=== PATIENT | female | born 1965 | race Two or more races ===

== ENCOUNTER → 2016-12-28 | Outpatient (CLI) | payer OTHER ==
[2016-12-28 08:51] LABS: Basophils # (auto) 0 uL; Basophils % (auto) 0.7 % (0.0-2.0); CONDITION Y; Eosinophils # (auto) 0.2 uL; Hemoglobin 12.9 g/dL (12.2-16.2); Lymphocytes # (auto) 1.7 uL; Lymphocytes % (auto) 30.9 % (10.0-50.0); Mean Corpuscular Hemoglobin 30.4 pg (28.0-32.0); Mean Corpuscular Hgb Conc. 33.9 g/dL (32.0-36.0); Mean Corpuscular Volume 89.6 fL (80.0-100.0); Mean Platelet Volume 7.2 fL (7.4-10.4); Monocytes # (auto) 0.3 uL; Monocytes % (auto) 5.9 % (0.0-12.0); Neutrophils # (auto) 3.3 uL; Neutrophils % (auto) 59.5 % (37.0-80.0); Platelet Count (auto) 354 10^3/uL (140-450); Red Cell Distribution Width 13.5 % (11.6-16.0); White Blood Cell 5.6 10^3/uL (4.4-10.8)
[2016-12-28 08:59] LABS: Urine Bilirubin Negative (Negative); Urine Blood TRACE /uL (Negative); Urine Color Yellow (Yellow); Urine Glucose Normal (Normal); Urine Ketone Negative (Negative); Urine Mucus FEW (None Seen); Urine Nitrite Negative (Negative); Urine RBC 1 /hpf (0 - 4); Urine Squamous Epithelial Cell FEW /hpf (<5); Urine Urobilinogen Normal (Negative); Urine pH 5.5 (5.0-8.0)
[2016-12-28 09:16] LABS: Albumin 3.8 g/dL (3.4-5.0); BUN/Creatinine Ratio 21.6; Bilirubin, Total 0.3 mg/dL (0.2-1.0); Calcium 9.3 mg/dL (8.5-10.1); Potassium 3.8 mmol/L (3.5-5.1)
[2016-12-28 09:36] LABS: Temperature: 23.5 C (20.0-25.0)
== END | disposition home or self-care (01) ==
LOC: LAB 08:29
PROVIDERS: ATTEND Family Medicine
DX: M19.90 Unspecified osteoarthritis, unspecified site (principal)
CPT/HCPCS: 36415; 80053; 80061; 81001; 82270; 82306; 82607; 82746; 83036; 84443; 85025; 86431

== ENCOUNTER → 2017-04-01 | Outpatient (CLI) | payer OTHER | END | disposition home or self-care (01) | LOC: LAB 11:31 | DX: I10 Essential (primary) hypertension (principal); I70.0 Atherosclerosis of aorta; M06.9 Rheumatoid arthritis, unspecified; E78.00 Pure hypercholesterolemia, unspecified; M45.0 Ankylosing spondylitis of multiple sites in spine | CPT/HCPCS: 36415; 84550; 86141; 86200; 86812 ==

== ENCOUNTER → 2017-07-03 | Outpatient (CLI) | payer OTHER ==
[2017-07-03 11:57] LABS: BUN/Creatinine Ratio 19.5; Calcium 9.3 mg/dL (8.5-10.1); Potassium 4.1 mmol/L (3.5-5.1)
== END | disposition home or self-care (01) ==
LOC: LAB 11:13
PROVIDERS: ATTEND Nurse Practitioner
DX: R73.03 Prediabetes (principal)
CPT/HCPCS: 36415; 80048; 83036

== ENCOUNTER → 2018-04-28 | Outpatient (CLI) | payer OTHER | END | disposition home or self-care (01) | LOC: LAB 15:05 | PROVIDERS: ATTEND Nurse Practitioner | DX: Z00.00 Encounter for general adult medical examination without abnormal findings (principal) | CPT/HCPCS: 82270 ==

== ENCOUNTER → 2018-10-22 | Outpatient (CLI) | payer OTHER ==
[2018-10-22 10:36] LABS: Urine WBC None Seen /hpf (0 - 5)
[2018-10-22 11:19] LABS: Urine Bacteria NONE SEEN /hpf (None Seen); Urine Blood Negative /uL (Negative); Urine Mucus FEW (None Seen); Urine Specific Gravity 1.024 (1.001-1.035)
[2018-10-22 11:46] LABS: Potassium 3.7 mmol/L (3.5-5.1)
[2018-10-22 11:53] LABS: Folate (Folic Acid) 11.64 ng/mL (5.38-24)
[2018-10-22 11:54] LABS: Albumin 3.8 g/dL (3.4-5.0); BUN/Creatinine Ratio 22.9; Bilirubin, Total 0.6 mg/dL (0.2-1.0); Calcium 8.9 mg/dL (8.5-10.1); Total Protein 8.1 g/dL (6.4-8.2); Uric Acid 4.7 mg/dL (2.6-6.0)
[2018-10-22 14:16] LABS: Basophils # (auto) 0 uL; Eosinophils # (auto) 0.2 uL; Eosinophils % (auto) 4.2 % (0.0-7.0); Hematocrit 36.5 % (36.0-46.0); Hemoglobin 12.4 g/dL (12.2-16.2); Lymphocytes # (auto) 1.4 uL; Lymphocytes % (auto) 29.8 % (10.0-50.0); Monocytes # (auto) 0.3 uL; Monocytes % (auto) 7.2 % (0.0-12.0); Neutrophils # (auto) 2.7 uL; Neutrophils % (auto) 57.8 % (37.0-80.0); Nucleated Red Blood Cells % 0.1 %; Platelet Count (auto) 312 10^3/uL (140-450); Red Blood Cells 4.01 10^6/uL (4.0-5.20); Red Cell Distribution Width 13.2 % (11.8-14.3); White Blood Cell 4.7 10^3/uL (4.4-10.8)
== END | disposition home or self-care (01) ==
LOC: LAB 09:44
PROVIDERS: ATTEND Nurse Practitioner
DX: E78.5 Hyperlipidemia, unspecified (principal)
CPT/HCPCS: 36415; 80053; 80061; 81001; 82306; 82607; 82746; 83036; 84443; 84550; 85025; 85652

== ENCOUNTER → 2018-12-24 | Outpatient (CLI) | payer OTHER ==
[2018-12-24 13:01] LABS: Albumin 3.5 g/dL (3.4-5.0); Calcium 8.7 mg/dL (8.5-10.1); Potassium 3.9 mmol/L (3.5-5.1)
[2018-12-24 13:04] LABS: BUN/Creatinine Ratio 29.5; Bilirubin, Total 0.2 mg/dL (0.2-1.0); Total Protein 7.9 g/dL (6.4-8.2)
== END | disposition home or self-care (01) ==
LOC: LAB 11:19
PROVIDERS: ATTEND Nurse Practitioner
DX: R73.09 Other abnormal glucose (principal)
CPT/HCPCS: 36415; 80053; 82306; 83036

== ENCOUNTER → 2019-02-18 | Outpatient (CLI) | payer OTHER ==
[2019-02-18 13:32] LABS: Basophils # (auto) 0 uL; Basophils % (auto) 0.6 % (0.0-2.0); Eosinophils # (auto) 0.2 uL; Eosinophils % (auto) 3.4 % (0.0-7.0); Hematocrit 36.9 % (36.0-46.0); Hemoglobin 12.8 g/dL (12.2-16.2); Lymphocytes # (auto) 1.7 uL; Mean Corpuscular Hemoglobin 30.8 pg (28.0-32.0); Mean Corpuscular Hgb Conc. 34.7 g/dL (32.0-36.0); Mean Corpuscular Volume 88.6 fL (80.0-100.0); Monocytes # (auto) 0.3 uL; Monocytes % (auto) 5.6 % (0.0-12.0); Neutrophils # (auto) 3.5 uL; Neutrophils % (auto) 60.4 % (37.0-80.0); Nucleated Red Blood Cells % 0.1 %; Platelet Count (auto) 330 10^3/uL (140-450); Red Blood Cells 4.17 10^6/uL (4.0-5.20); Red Cell Distribution Width 12.9 % (11.8-14.3); White Blood Cell 5.8 10^3/uL (4.4-10.8)
[2019-02-18 13:45] LABS: Albumin 3.8 g/dL (3.4-5.0); Calcium 8.8 mg/dL (8.5-10.1); Potassium 3.7 mmol/L (3.5-5.1)
[2019-02-18 13:49] LABS: BUN/Creatinine Ratio 18.6; Bilirubin, Total 0.2 mg/dL (0.2-1.0); Total Protein 7.9 g/dL (6.4-8.2)
== END | disposition home or self-care (01) ==
LOC: LAB 12:58
PROVIDERS: ATTEND Nurse Practitioner
DX: R73.03 Prediabetes (principal)
CPT/HCPCS: 36415; 80053; 83036; 85025

== ENCOUNTER 2019-04-06 11:00 | Inpatient (IN) | payer OTHER ==
[~2019-04-06] VITALS: Ht 154.9 cm; Wt 74.5 kg
[2019-04-06] MEDS ORDERED: MORPHINE SULFATE 4 MG/ML SYR/VIAL IV ONE (11:30)
[2019-04-06] MEDS ORDERED: ASPirin 81 mg TAB PO ONE (11:30)
[2019-04-06] MEDS ORDERED: ONDANSETRON HCL 4 MG/2 ML VIAL IV ONE (11:30)
[2019-04-06 11:40] LABS: Basophils # (auto) 0 uL; Basophils % (auto) 0.5 % (0.0-2.0); Eosinophils # (auto) 0.1 uL; Eosinophils % (auto) 1.3 % (0.0-7.0); Hematocrit 41.5 % (36.0-46.0); Lymphocytes # (auto) 1.3 uL; Lymphocytes % (auto) 17.2 % (10.0-50.0); Mean Corpuscular Hemoglobin 30.7 pg (28.0-32.0); Mean Corpuscular Hgb Conc. 33.7 g/dL (32.0-36.0); Mean Corpuscular Volume 91.2 fL (80.0-100.0); Monocytes # (auto) 0.4 uL; Monocytes % (auto) 4.9 % (0.0-12.0); Neutrophils # (auto) 5.8 uL; Neutrophils % (auto) 76.1 % (37.0-80.0); Nucleated Red Blood Cells % 0.1 %; Platelet Count (auto) 339 10^3/uL (140-450); Red Blood Cells 4.55 10^6/uL (4.0-5.20); Red Cell Distribution Width 12.8 % (11.8-14.3); White Blood Cell 7.6 10^3/uL (4.4-10.8)
[2019-04-06 12:01] LABS: Chloride 104 mmol/L (98-107); Potassium 3.8 mmol/L (3.5-5.1); Sodium 137 mmol/L (136-145)
[2019-04-06 12:05] LABS: Alkaline Phosphatase 80 U/L (45-117); Anion Gap 8 (5-15); BUN/Creatinine Ratio 21.2; Bilirubin, Total 0.3 mg/dL (0.2-1.0); Blood Urea Nitrogen 21 mg/dL (7-18); Calcium 9.5 mg/dL (8.5-10.1); Carbon Dioxide 25 mmol/L (21-32); GFR African American 75 mL/min; GFR Non-African American 62 mL/min; Glucose 128 mg/dL (74-106); Total Protein 8.9 g/dL (6.4-8.2)
[2019-04-06 12:13] LABS: Alanine Aminotransferase 27 U/L (13-56); Albumin 3.8 g/dL (3.4-5.0); Aspartate Aminotransferase 17 U/L (15-37)
[2019-04-06] MEDS ORDERED: MORPHINE SULF INJ 2 MG/ML SYRINGE 1ML IV PRN (14:00)
[2019-04-06] MEDS ORDERED: ACETAMINOPHEN 500 MG TAB PO PRN (14:00)
[2019-04-06] MEDS ORDERED: ONDANSETRON HCL 4 MG/2 ML VIAL IV PRN (14:00)
[2019-04-06] MEDS ORDERED: HYDROcodone-ACET 5/325MG TAB PO PRN (14:00)
[2019-04-06] MEDS ORDERED: hydrALAZINE HCL 20 MG/ML VL IV PRN (14:00)
[2019-04-06] MEDS ORDERED: NITROGLYCERIN 0.4 MG SL TAB SL PRN (14:00)
[2019-04-06 16:36] LABS: Urine WBC None Seen /hpf (0 - 5)
[2019-04-06 16:53] LABS: Urine Bacteria NONE SEEN /hpf (None Seen); Urine Blood Negative /uL (Negative); Urine Mucus FEW (None Seen); Urine Specific Gravity 1.025 (1.001-1.035)
[2019-04-06] MEDS: MORPHINE SULF INJ 2 MG/ML SYRINGE 1ML IV PRN (19:42)
--- NOTE | 2019-04-06 21:36 | NUR ---
Telemetry admit from ER MODESTO HENDRIX admitted to Telemetry unit. Patient oriented to AKI SOTELO, savannah RN, unit, room, bed, and unit policies regarding patient care and visiting hours. Patient now on continuous telemetry monitoring, tele box #[id number] and telemetry reading on arrival to unit is NSR . Patient placed on bedside oxygen, weighed by bed scale and encouraged to call if they need something. All questions and concerns addressed, patient verbalized understanding.
[2019-04-06] MEDS: METOPROLOL TARTRATE 25 MG TAB PO SCH (21:49)
[2019-04-06 22:00] VITALS: BP 132/82
[2019-04-06] MEDS: ATORVASTATIN 20 MG TAB PO SCH (22:29)
[2019-04-06] MEDS ORDERED: DICL50TA2 PO (23:11)
[2019-04-06] MEDS ORDERED: GABA100C PO (23:11)
[2019-04-06] MEDS ORDERED: CITA10TA59 PO (23:11)
[2019-04-06] MEDS ORDERED: CYCL1TAB18 PO (23:11)
[2019-04-06] MEDS ORDERED: METF500T PO (23:11)
[2019-04-06] MEDS ORDERED: HYDRX10T PO (23:11)
[2019-04-07 05:00] VITALS: BP 119/80
[2019-04-07 05:50] LABS: Basophils # (auto) 0.1 uL; Basophils % (auto) 0.8 % (0.0-2.0); Eosinophils # (auto) 0.1 uL; Eosinophils % (auto) 1.7 % (0.0-7.0); Hematocrit 39.1 % (36.0-46.0); Hemoglobin 13.4 g/dL (12.2-16.2); Lymphocytes # (auto) 1.4 uL; Mean Corpuscular Hemoglobin 31.2 pg (28.0-32.0); Mean Corpuscular Hgb Conc. 34.2 g/dL (32.0-36.0); Mean Corpuscular Volume 91.2 fL (80.0-100.0); Monocytes # (auto) 0.4 uL; Monocytes % (auto) 6.7 % (0.0-12.0); Neutrophils # (auto) 4.5 uL; Neutrophils % (auto) 68.8 % (37.0-80.0); Platelet Count (auto) 305 10^3/uL (140-450); Red Blood Cells 4.28 10^6/uL (4.0-5.20); Red Cell Distribution Width 12.8 % (11.8-14.3); White Blood Cell 6.5 10^3/uL (4.4-10.8)
[2019-04-07 06:00] LABS: INR 1.03 (0.9-1.15); Partial Thromboplastin Time 27.3 sec (23.64-32.05)
[2019-04-07 06:02] LABS: Calcium 8.5 mg/dL (8.5-10.1); Potassium 3.3 mmol/L (3.5-5.1)
--- NOTE | 2019-04-07 06:43 | NUR ---
Patient afebrile, denies pain, denies chest pain. NPO since midnight fro cardiolite stress test.
--- NOTE | 2019-04-07 08:00 | NUR ---
RECEIVED PATIENT ALERT AND ORIENTED X4, NOT IN DISTRESS, CLEAR SOUNDS IN BILATERAL UPPER AND LOWER LUNG LOBES, RR=18 ON RA, COUGHING AND DEEP BREATHING WAS ENCOURAGED, DEMONSTRATED WELL, S TACH R=108 ON TELE MONITOR, ABDOMEN SOFT WITH ACTIVE BS, KEEP NPO ORDERED, LAST BM=04/06/19 REPORTED, SKIN INTACT WARM TO TOUCH, RADIAL AND PEDAL PULSES PALPABLE, CAP REFILL <3 SECONDS, RESTING ON BED, HEAD OF BED ELEVATED, BED ON LOW POSITION, RAILS UP X2, CALL LIGHT ON REACH, PENDING CARDIAC STRESS TEST ORDERED, STRESS LAB WAS CALLED FOR FOLLOW UP, SUSTAINABLE DEVELOPMENT POLICY ANALYST SCHEDULE PENDING REPORTED, WILL CONTINUE MONITORING.
[2019-04-07] MEDS ORDERED: ADENOSINE 58 MG in GIVE UN-DILUTED 0 ML IV STA (08:18)
[2019-04-07 08:45] VITALS: BP 122/78
--- NOTE | 2019-04-07 08:55 | NUR ---
NOT IN DISTRESS, DENIED PAIN, WENT ON WC TO STRESS TEST, WILL CONTINUE MONITORING.
[2019-04-07 09:00] VITALS: BP 120/74
[2019-04-07] MEDS ORDERED: POTASSIUM CHLORIDE 60 MEQ, LIDOCAINE 1% (LOCAL ANESTH.) 6 ML in SODIUM CHL 0.9% 500 ML IV ONE (10:15)
[2019-04-07] MEDS: LEVOFLOXACIN 500MG 100 ML IV SCH (10:58)
[2019-04-07] MEDS: SOD CHL 0.9%/ KCL 20MEQ 1,000 ML IV SCH ×2 (10:58→19:30)
[2019-04-07] MEDS: ASPirin-EC 81 mg tab PO SCH (11:00)
[2019-04-07] MEDS: METOPROLOL TARTRATE 25 MG TAB PO SCH ×2 (11:01→21:51)
[2019-04-07] MEDS: LISINOPRIL 10 MG TAB PO SCH (11:02)
[2019-04-07] MEDS: FAMOTIDINE 20 MG TAB PO SCH (11:02)
[2019-04-07 13:00] VITALS: BP 127/82
--- NOTE | 2019-04-07 14:00 | NUR ---
KEEP NPO ORDERED, PENDING SURGICAL CONSULT REPORTED, NOT IN DISTRESS , RESTING ON BED, WILL CONTINUE MONITORING.
[2019-04-07] MEDS: metroNIDAZOLE 500MG/100ML 100 ML IV SCH ×2 (14:51→21:32)
[2019-04-07] MEDS: MORPHINE SULF INJ 2 MG/ML SYRINGE 1ML IV PRN (15:29)
[2019-04-07 17:00] VITALS: BP 102/64
--- NOTE | 2019-04-07 20:00 | NUR ---
Opening Shift Note Assumed care of patient, awake and alert. No S/S of distress/SOB or pain. Instructed on POC and to call for assist PRN, will continue to monitor for changes Q1hr and PRN.
--- NOTE | 2019-04-07 20:16 | NUR ---
NOT IN DISTRESS, DENIED PAIN, REPORT WAS GIVEN TO THE SHAPING MACHINE OPERATOR RN.
[2019-04-07] MEDS: ATORVASTATIN 20 MG TAB PO SCH (21:32)
[2019-04-07 22:00] VITALS: BP 104/69
[2019-04-08] MEDS: metroNIDAZOLE 500MG/100ML 100 ML IV SCH ×3 (05:29→21:23)
[2019-04-08] MEDS: SOD CHL 0.9%/ KCL 20MEQ 1,000 ML IV SCH ×2 (05:30→15:30)
[2019-04-08 06:00] VITALS: BP 97/61
[2019-04-08 06:47] LABS: Basophils # (auto) 0.1 uL; Basophils % (auto) 0.7 % (0.0-2.0); Eosinophils # (auto) 0.2 uL; Eosinophils % (auto) 2.6 % (0.0-7.0); Hematocrit 39.3 % (36.0-46.0); Lymphocytes # (auto) 1.4 uL; Lymphocytes % (auto) 19.7 % (10.0-50.0); Mean Corpuscular Hemoglobin 30.4 pg (28.0-32.0); Mean Corpuscular Hgb Conc. 33.1 g/dL (32.0-36.0); Mean Corpuscular Volume 91.8 fL (80.0-100.0); Monocytes # (auto) 0.5 uL; Monocytes % (auto) 6.6 % (0.0-12.0); Neutrophils # (auto) 5.1 uL; Neutrophils % (auto) 70.4 % (37.0-80.0); Platelet Count (auto) 301 10^3/uL (140-450); Red Blood Cells 4.28 10^6/uL (4.0-5.20); White Blood Cell 7.2 10^3/uL (4.4-10.8)
[2019-04-08 07:04] LABS: Albumin 3.2 g/dL (3.4-5.0); Bilirubin, Total 0.4 mg/dL (0.2-1.0); Calcium 8.8 mg/dL (8.5-10.1); Total Protein 7.6 g/dL (6.4-8.2)
--- NOTE | 2019-04-08 07:21 | NUR ---
Report given to Adrianne Delgado NPO maintained, consent refused to sign last night and said the doctor did not tell her that she is for surgery today.
[2019-04-08 07:23] LABS: Potassium 4.2 mmol/L (3.5-5.1)
--- NOTE | 2019-04-08 07:53 | NUR ---
RECEIVED PATIENT ALERT AND ORIENTED X4, NOT IN DISTRESS, CLEAR SOUNDS IN BILATERAL UPPER AND LOWER LUNG LOBES, RR=18 ON RA, COUGHING AND DEEP BREATHING WAS ENCOURAGED, DEMONSTRATED WELL, SR R=96 ON TELE MONITOR, ABDOMEN SOFT WITH ACTIVE BS, KEEP NPO ORDERED, LAST BM=04/06/19 REPORTED, SKIN INTACT WARM TO TOUCH, RADIAL AND PEDAL PULSES PALPABLE, CAP REFILL <3 SECONDS, RESTING ON BED, HEAD OF BED ELEVATED, BED ON LOW POSITION, RAILS UP X2, CALL LIGHT ON REACH, PENDING OR ORDERED, 1200 SCHEDULE PENDING REPORTED, RESTING AND SLEEPING ON BED, HEAD OF BED ELEVATED, BED ON LOW POSITION, RAILS UP X2, CALL LIGHT ON REACH, WILL CONTINUE MONITORING.
[2019-04-08 09:00] VITALS: BP 97/62
[2019-04-08] MEDS: LEVOFLOXACIN 500MG 100 ML IV SCH (09:06)
[2019-04-08] MEDS: ASPirin-EC 81 mg tab PO SCH (09:07)
[2019-04-08] MEDS: FAMOTIDINE 20 MG TAB PO SCH (09:08)
[2019-04-08] MEDS: METOPROLOL TARTRATE 25 MG TAB PO SCH ×2 (09:14→21:23)
[2019-04-08] MEDS: LISINOPRIL 10 MG TAB PO SCH (09:14)
[2019-04-08] MEDS ORDERED: ACCU-CHEK COMFORT CURVE STRIP VI ONE (11:00)
[2019-04-08] MEDS ORDERED: KETOROLAC TROMETH 30 MG/ML 1ML VIAL IV ONE (11:00)
[2019-04-08] MEDS ORDERED: ONDANSETRON HCL 4 MG/2 ML VIAL IV PRN (11:00)
[2019-04-08] MEDS ORDERED: HYDROmorphone HCL 2 MG/ML VL IV PRN (11:00)
[2019-04-08] MEDS ORDERED: LABETALOL HCL 5 MG/ML 4ML SYRINGE IV PRN (11:00)
[2019-04-08] MEDS ORDERED: MORPHINE SULFATE 4 MG/ML SYR/VIAL IV PRN (11:00)
[2019-04-08] MEDS ORDERED: ROCURONIUM 10MG/ML 10ML VIAL IV ONE (11:10)
[2019-04-08] MEDS ORDERED: fentaNYL CITRATE 100 MCG/2 ML VL ONE (11:15)
[2019-04-08] MEDS ORDERED: MIDAZOLAM HCL 1MG/1ML-2 ML VIAL ONE (11:15)
[2019-04-08] MEDS ORDERED: MEPERIDINE HCL (50 MG/ML) 1 ML VIAL ONE (11:15)
[2019-04-08] MEDS ORDERED: DexAMETHasone SOD PHOS 10MG/1ML VIAL INJ ONE (11:16)
[2019-04-08] MEDS ORDERED: PROPOFOL 10 MG/ML 20 ML IV ONE (11:16)
--- NOTE | 2019-04-08 11:22 | NUR ---
Not in distress, denied pain, went on bed to or, will continue follow up.
[2019-04-08] MEDS ORDERED: PHENYLEPHRINE HCL 10 MG/ML VL ONE (12:01)
[2019-04-08] MEDS ORDERED: NEOSTIGMINE 1 MG/ML INJ (10mg/10ML VIAL) ONE (12:02)
[2019-04-08] MEDS ORDERED: GLYCOPYRROLATE 0.2 MG/ML 1ML VIAL ONE (12:02)
[2019-04-08] MEDS: ePHEDrine SULFATE 50 MG/ML AMP IV PRN ×5 (12:52→13:32)
--- NOTE | 2019-04-08 13:00 | NUR ---
Patient out for procedure for 1300 vitals.-EW
--- NOTE | 2019-04-08 14:05 | NUR ---
CAME FROM OR, ALERT AND ORIENTED X4, NOT IN DISTRESS, ABDOMINAL LAP CHOLECYSTECTOMY INCISIONS X3 DRY AND INTACT, COVERED WITH DRY AND INTACT DRESSING, TOLERATING ABDOMINAL BINDER, RESTING ON BED, AT BED SIDE, VS T=98.4 RR=16 P=63 BP=97/53, HEAD OF BED ELEVATED, BED ON LOW POSITION, RAILS UP X2, CALL LIGHT ON REACH, WILL CONTINUE MONITORING.
--- NOTE | 2019-04-08 15:34 | NUR ---
NUTRITION ASSESSMENT NOTES Please refer to link notes of nutrition screen form filed under the intervention section of the plan of care for further details. Est. Needs: 1450 kcal to 1850 kcal (20-25 kcal/kgBW), 59 gms to 71 gms pro (0.8-1.0 gms/kgBW). Will continue to monitor pertinent labs and reassess nutrient need prn Thank you. Addendum: 04/08/19 at [address] Amended: Links added.
--- NOTE | 2019-04-08 17:40 | NUR ---
OUT OF BED TO BR AND BACK TO BED, TOLERATED WELL, NOT IN DISTRESS, DENIED PAIN, WILL CONTINUE MONITORING.
[2019-04-08 18:00] VITALS: BP 95/60
--- NOTE | 2019-04-08 19:32 | NUR ---
TOLERATED CLEAR LIQUID DIET, NOT IN DISTRESS, DENIED PAIN, RESTING ON BED, AT BED SIDE, REPORT WAS GIVEN TO THE VP OF DIGITAL MARKETING RN.
--- NOTE | 2019-04-08 19:40 | NUR ---
Patient sitting up in bed in no acute distress or sob. Patient's family at bedside. Patient noted in no acute distress or sob. Call light within reach.
--- NOTE | 2019-04-08 20:00 | NUR ---
This wrist note in i.v.line intervention is wrong note.
--- NOTE | 2019-04-08 20:00 | NUR ---
Received patient with i.v.site in the left wrist inserted in the O.R.
--- NOTE | 2019-04-08 20:30 | NUR ---
Primary rn Naty will assume care of patient at this time. Patient laying in bed in no acute distress or sob.
[2019-04-08] MEDS: ATORVASTATIN 20 MG TAB PO SCH (21:23)
[2019-04-08 21:36] VITALS: BP 96/54
--- NOTE | 2019-04-09 | NUR ---
Called/paged Carolyn English called re:blood pressure of 87/52,86/48,at bed time, pulse is 80 asymptomatic, and rechecked blood pressure at around 2130 its 96/54, pulse is 83, . Waiting for call back. Continue care.
--- NOTE | 2019-04-09 00:53 | NUR ---
returned call Carolyn Henao returned call, updated on patient status and reason for call, orders received albumin 250cc in 5% i.v.p.b x one and check H and H.at 0400 Continue care.
[2019-04-09] MEDS ORDERED: ALBUMIN 5% 250 ML IV ONE (01:00)
[2019-04-09] MEDS: SOD CHL 0.9%/ KCL 20MEQ 1,000 ML IV SCH ×2 (01:30→13:50)
[2019-04-09 05:42] VITALS: BP 105/62
[2019-04-09] MEDS: metroNIDAZOLE 500MG/100ML 100 ML IV SCH ×2 (05:48→14:00)
[2019-04-09 06:28] LABS: Hematocrit 33.6 % (36.0-46.0); Hemoglobin 11.4 g/dL (12.2-16.2)
--- NOTE | 2019-04-09 06:50 | NUR ---
IV removal IV DC'd in the right hand with sterile technique, catheter fully intact. Pressure dressing applied to site. Patient tolerated procedure well.
--- NOTE | 2019-04-09 07:30 | NUR ---
Care report given to Adrianne Martinez, patient is resting no distress.
--- NOTE | 2019-04-09 07:30 | NUR ---
Opening Shift Note Assuming care of patient at this time. Patient is awake and alert. Patient denies pain. Bed is locked and lowered with side rails up x2. Patient shows no signs or symptoms of distress or shortness of breath. Instructed patient on the plan of care for today and to call for assistance as needed. Patient verbalizes that she wants to go home. Incisions to abdomen, show no bloody drainage, only Betadine solution saturation. Patient is wearing abdominal binder, complains of minimal tenderness to touch. Call light within reach. Will continue to round hourly and as needed.
--- NOTE | 2019-04-09 07:32 | NUR ---
Dressing in the abdomen no changes ,3 incision sites is eunice, no signs and symptoms of infection.
[2019-04-09 09:00] VITALS: BP 104/58
[2019-04-09] MEDS: METOPROLOL TARTRATE 25 MG TAB PO SCH (10:00)
[2019-04-09] MEDS: LISINOPRIL 10 MG TAB PO SCH (10:00)
[2019-04-09] MEDS: FAMOTIDINE 20 MG TAB PO SCH (10:21)
[2019-04-09] MEDS: ASPirin-EC 81 mg tab PO SCH (10:21)
[2019-04-09] MEDS: LEVOFLOXACIN 500MG 100 ML IV SCH (10:22)
[2019-04-09 13:00] VITALS: BP 104/58
[2019-04-09] MEDS ORDERED: CHOL20007 PO (14:44)
[2019-04-09 14:59] VITALS: BP 104/58
--- NOTE | 2019-04-09 16:30 | NUR ---
Discharge Discharge instructions given as ordered. Encourage to follow up with primary MD as instructed. All questions and concerns addressed. Patient verbalized understanding. Patient has already received prescribed medications from [facility]. IV removed with catheter intact, pressure dressing applied. Telemetry unit returned to ICU. Patient ambulated to vehicle with all personal belongings, accompanied by family member. No distress noted at time of departure.
== END 2019-04-09 16:30 | disposition home or self-care (01) | DRG 418 ==
LOC: ER 11:18 → TELE 11:19 → TELE-WESTW 21:18
PROVIDERS: ADMIT Nurse Practitioner Acute Care; ATTEND Internal Medicine
PROC: 0FT44ZZ Resection of Gallbladder, Percutaneous Endoscopic Approach (ICD-10-PCS; principal; 2019-04-08 11:20)
DX: K80.00 Calculus of gallbladder with acute cholecystitis without obstruction (principal); I24.9 Acute ischemic heart disease, unspecified; I10 Essential (primary) hypertension; E11.9 Type 2 diabetes mellitus without complications; F41.9 Anxiety disorder, unspecified; E66.9 Obesity, unspecified; K21.9 Gastro-esophageal reflux disease without esophagitis; G89.29 Other chronic pain; M25.511 Pain in right shoulder; Z68.31 Body mass index [BMI] 31.0-31.9, adult; Z79.84 Long term (current) use of oral hypoglycemic drugs; Z82.49 Family history of ischemic heart disease and other diseases of the circulatory system
CPT/HCPCS: 36415; 71045; 71046; 76705; 78452; 80048; 80053; 80061; 81001; 82247; 82962; 83036; 83735; 83880; 84484; 85014; 85018; 85025; 85610; 85730; 86141; 86850; 86900; 86901; 93005; 93017; 93306; G0378; J0153; J1100; J1885; J1956; J2001; J2250; J2405; J2704; J3490

== ENCOUNTER 2019-06-11 17:58 | Emergency (ER) | payer OTHER ==
[~2019-06-11] VITALS: Ht 154.9 cm; Wt 70.3 kg
[~2019-06-11 17:58] MED LIST: CHOL20007 PO; CITA10TA59 PO; CYCL1TAB18 PO; DICL50TA2 PO; GABA100C PO; METF500T PO
[2019-06-11 19:13] LABS: Basophils # (auto) 0 uL; Basophils % (auto) 0.8 % (0.0-2.0); Eosinophils # (auto) 0.2 uL; Eosinophils % (auto) 3.3 % (0.0-7.0); Hematocrit 39.3 % (36.0-46.0); Hemoglobin 13.1 g/dL (12.2-16.2); Lymphocytes # (auto) 0.8 uL; Lymphocytes % (auto) 13.8 % (10.0-50.0); Mean Corpuscular Hemoglobin 30.3 pg (28.0-32.0); Mean Corpuscular Hgb Conc. 33.2 g/dL (32.0-36.0); Mean Corpuscular Volume 91.2 fL (80.0-100.0); Monocytes # (auto) 0.4 uL; Monocytes % (auto) 7.5 % (0.0-12.0); Neutrophils # (auto) 4.1 uL; Neutrophils % (auto) 74.6 % (37.0-80.0); Platelet Count (auto) 266 10^3/uL (140-450); Red Blood Cells 4.31 10^6/uL (4.0-5.20); Red Cell Distribution Width 13.1 % (11.8-14.3); White Blood Cell 5.5 10^3/uL (4.4-10.8)
[2019-06-11 19:36] LABS: Albumin 3.5 g/dL (3.4-5.0); Anion Gap 6 (5-15); Blood Urea Nitrogen 20 mg/dL (7-18); Calcium 8.3 mg/dL (8.5-10.1); Carbon Dioxide 27 mmol/L (21-32); Chloride 108 mmol/L (98-107); Glucose 101 mg/dL (74-106); Magnesium 2.1 mg/dL (1.6-2.6); Potassium 3.8 mmol/L (3.5-5.1); Sodium 141 mmol/L (136-145)
[2019-06-11 19:41] LABS: Alanine Aminotransferase 25 U/L (13-56); Alkaline Phosphatase 72 U/L (45-117); Aspartate Aminotransferase 13 U/L (15-37); BUN/Creatinine Ratio 22.7; Bilirubin, Total 0.3 mg/dL (0.2-1.0); GFR African American 86 mL/min; GFR Non-African American 71 mL/min; Total Protein 7.7 g/dL (6.4-8.2)
[2019-06-11] MEDS: SODIUM CHLORIDE 0.9% 500 ML IV ONE (20:21)
[2019-06-11 20:57] VITALS: BP 98/66
== END 2019-06-11 20:24 | disposition home or self-care (01) ==
LOC: EDBD 17:58 → ER 18:07
DX: S09.90XA Unspecified injury of head, initial encounter (principal); I47.1 Supraventricular tachycardia; R55 Syncope and collapse; E11.9 Type 2 diabetes mellitus without complications; I10 Essential (primary) hypertension; G89.29 Other chronic pain; M54.2 Cervicalgia; Z98.51 Tubal ligation status; Z90.49 Acquired absence of other specified parts of digestive tract; X58.XXXA Exposure to other specified factors, initial encounter; Y93.89 Activity, other specified; Y99.8 Other external cause status; Y92.89 Other specified places as the place of occurrence of the external cause
CPT/HCPCS: 36415; 70450; 72125; 80053; 82962; 83735; 84484; 85025; 93005

== ENCOUNTER → 2019-06-23 | Outpatient (CLI) | payer OTHER ==
[2019-06-23 14:48] LABS: Basophils # (auto) 0 uL; Basophils % (auto) 0.6 % (0.0-2.0); Eosinophils # (auto) 0.3 uL; Eosinophils % (auto) 4.5 % (0.0-7.0); Hematocrit 37.8 % (36.0-46.0); Hemoglobin 12.6 g/dL (12.2-16.2); Lymphocytes # (auto) 1.9 uL; Lymphocytes % (auto) 32.7 % (10.0-50.0); Mean Corpuscular Hemoglobin 30.4 pg (28.0-32.0); Mean Corpuscular Hgb Conc. 33.5 g/dL (32.0-36.0); Mean Corpuscular Volume 90.8 fL (80.0-100.0); Monocytes # (auto) 0.4 uL; Monocytes % (auto) 7.5 % (0.0-12.0); Neutrophils # (auto) 3.1 uL; Neutrophils % (auto) 54.7 % (37.0-80.0); Platelet Count (auto) 330 10^3/uL (140-450); Red Blood Cells 4.16 10^6/uL (4.0-5.20); Red Cell Distribution Width 12.9 % (11.8-14.3); White Blood Cell 5.7 10^3/uL (4.4-10.8)
[2019-06-23 14:54] LABS: Urine Bacteria NONE SEEN /hpf (None Seen); Urine Blood TRACE /uL (Negative); Urine Mucus FEW (None Seen); Urine Specific Gravity 1.028 (1.001-1.035); Urine WBC 14 /hpf (0 - 5)
[2019-06-23 15:11] LABS: Albumin 3.9 g/dL (3.4-5.0); Calcium 9.2 mg/dL (8.5-10.1); Potassium 3.7 mmol/L (3.5-5.1)
[2019-06-23 15:16] LABS: BUN/Creatinine Ratio 22.2; Bilirubin, Total 0.2 mg/dL (0.2-1.0); Total Protein 8.3 g/dL (6.4-8.2)
== END | disposition home or self-care (01) ==
LOC: LAB 14:19
PROVIDERS: ATTEND Nurse Practitioner
DX: E78.5 Hyperlipidemia, unspecified (principal); E11.9 Type 2 diabetes mellitus without complications
CPT/HCPCS: 36415; 80053; 80061; 81001; 82043; 82270; 82306; 83036; 84443; 85025

== ENCOUNTER → 2019-09-17 | Outpatient (CLI) | payer OTHER ==
[2019-09-17 10:09] LABS: Basophils # (auto) 0 10 ^3/uL (0-0.2); Eosinophils # (auto) 0.2 10 ^3/uL (0-0.8); Hematocrit 37.4 % (36.0-46.0); Hemoglobin 12.3 g/dL (12.2-16.2); Lymphocytes # (auto) 1.6 10 ^3/uL (0.4-5.4); Lymphocytes % (auto) 32.4 % (10.0-50.0); Mean Corpuscular Hemoglobin 29.9 pg (28.0-32.0); Mean Corpuscular Hgb Conc. 32.9 g/dL (32.0-36.0); Mean Corpuscular Volume 90.9 fL (80.0-100.0); Monocytes # (auto) 0.3 10 ^3/uL (0-1.3); Monocytes % (auto) 7.1 % (0.0-12.0); Neutrophils # (auto) 2.7 10 ^3/uL (1.6-8.6); Neutrophils % (auto) 55.5 % (37.0-80.0); Platelet Count (auto) 297 10^3/uL (140-450); Red Blood Cells 4.12 10^6/uL (4.0-5.20); Red Cell Distribution Width 12.7 % (11.8-14.3); White Blood Cell 4.9 10^3/uL (4.4-10.8)
[2019-09-17 10:16] LABS: Urine Bacteria FEW /hpf (None Seen); Urine Blood 1+ /uL (Negative); Urine Hyaline Cast FEW /lpf (0 - 2); Urine Mucus FEW (None Seen); Urine Specific Gravity 1.029 (1.001-1.035); Urine WBC 43 /hpf (0 - 5)
[2019-09-17 10:51] LABS: Potassium 3.9 mmol/L (3.5-5.1)
[2019-09-17 11:01] LABS: Albumin 3.5 g/dL (3.4-5.0); BUN/Creatinine Ratio 24.7; Bilirubin, Total 0.3 mg/dL (0.2-1.0); Calcium 8.9 mg/dL (8.5-10.1); Total Protein 7.9 g/dL (6.4-8.2)
== END | disposition home or self-care (01) ==
LOC: LAB 09:28
PROVIDERS: ATTEND Nurse Practitioner
DX: Z00.00 Encounter for general adult medical examination without abnormal findings (principal); E78.5 Hyperlipidemia, unspecified; R73.9 Hyperglycemia, unspecified
CPT/HCPCS: 36415; 80053; 80061; 81001; 84443; 85025

== ENCOUNTER → 2019-12-18 | Outpatient (CLI) | payer OTHER ==
[~2019-12-18] MED LIST changes: +CYCL10TA6 PO; -CYCL1TAB18 PO
[2019-12-18 10:40] LABS: Basophils # (auto) 0.1 10 ^3/uL (0-0.2); Eosinophils # (auto) 0.2 10 ^3/uL (0-0.8); Eosinophils % (auto) 3.3 % (0.0-7.0); Hematocrit 38.4 % (36.0-46.0); Hemoglobin 12.7 g/dL (12.2-16.2); Lymphocytes # (auto) 1.5 10 ^3/uL (0.4-5.4); Lymphocytes % (auto) 27.6 % (10.0-50.0); Mean Corpuscular Hemoglobin 30.5 pg (28.0-32.0); Mean Corpuscular Volume 92.2 fL (80.0-100.0); Monocytes # (auto) 0.4 10 ^3/uL (0-1.3); Monocytes % (auto) 6.3 % (0.0-12.0); Neutrophils # (auto) 3.4 10 ^3/uL (1.6-8.6); Neutrophils % (auto) 61.8 % (37.0-80.0); Platelet Count (auto) 300 10^3/uL (140-450); Red Blood Cells 4.16 10^6/uL (4.0-5.20); Red Cell Distribution Width 13.2 % (11.8-14.3); White Blood Cell 5.5 10^3/uL (4.4-10.8)
[2019-12-18 11:06] LABS: Albumin 3.9 g/dL (3.4-5.0); Potassium 3.7 mmol/L (3.5-5.1)
[2019-12-18 11:10] LABS: BUN/Creatinine Ratio 20.4; Bilirubin, Total 0.3 mg/dL (0.2-1.0); Total Protein 8.1 g/dL (6.4-8.2)
== END | disposition home or self-care (01) ==
LOC: LAB 10:27
PROVIDERS: ATTEND Nurse Practitioner
DX: R73.03 Prediabetes (principal)
CPT/HCPCS: 36415; 80053; 83036; 85025

== ENCOUNTER → 2020-04-25 | Outpatient (CLI) | payer OTHER ==
[2020-04-25 13:44] LABS: Albumin 3.7 g/dL (3.4-5.0); Calcium 9.1 mg/dL (8.5-10.1)
[2020-04-25 13:49] LABS: BUN/Creatinine Ratio 24.4; Bilirubin, Total 0.5 mg/dL (0.2-1.0); Total Protein 7.6 g/dL (6.4-8.2)
== END | disposition home or self-care (01) ==
LOC: LAB 13:04
PROVIDERS: ATTEND Nurse Practitioner
DX: E78.5 Hyperlipidemia, unspecified (principal); R73.03 Prediabetes
CPT/HCPCS: 36415; 80053; 80061; 83036

== ENCOUNTER → 2021-02-27 | Outpatient (CLI) | payer OTHER ==
[~2021-02-27] MED LIST changes: -CITA10TA59 PO; +CITA10TA8 PO; +CYCL-839 PO; -CYCL10TA6 PO; +LISI-716 PO; +METO25TA93 PO
[2021-02-27 09:39] LABS: Basophils # (auto) 0.1 10 ^3/uL (0-0.2); Basophils % (auto) 0.9 % (0.0-2.0); Eosinophils # (auto) 0.2 10 ^3/uL (0-0.8); Eosinophils % (auto) 3.2 % (0.0-7.0); Hemoglobin 14.1 g/dL (12.2-16.2); Lymphocytes # (auto) 1.2 10 ^3/uL (0.4-5.4); Mean Corpuscular Hemoglobin 30.6 pg (28.0-32.0); Mean Corpuscular Hgb Conc. 33.5 g/dL (32.0-36.0); Mean Corpuscular Volume 91.2 fL (80.0-100.0); Monocytes # (auto) 0.3 10 ^3/uL (0-1.3); Monocytes % (auto) 4.6 % (0.0-12.0); Neutrophils # (auto) 3.9 10 ^3/uL (1.6-8.6); Neutrophils % (auto) 69.3 % (37.0-80.0); Nucleated Red Blood Cells % 0.2 %; White Blood Cell 5.6 10^3/uL (4.4-10.8)
[2021-02-27 10:02] LABS: INR 0.99 (0.9-1.15); Partial Thromboplastin Time 25.5 sec (23.6-33.0)
[2021-02-27 10:27] LABS: Albumin 3.9 g/dL (3.4-5.0); Calcium 9.6 mg/dL (8.5-10.1)
[2021-02-27 10:33] LABS: BUN/Creatinine Ratio 18.1; Bilirubin, Total 0.4 mg/dL (0.2-1.0)
[2021-02-27 10:34] LABS: Total Protein 8.3 g/dL (6.4-8.2)
== END | disposition home or self-care (01) ==
LOC: LAB 09:24
PROVIDERS: ATTEND Internal Medicine
DX: Z01.812 Encounter for preprocedural laboratory examination (principal)
CPT/HCPCS: 36415; 80053; 85025; 85610; 85730

== ENCOUNTER 2021-03-01 10:03 | Day surgery (SDC) | payer OTHER ==
[~2021-03-01] VITALS: Ht 154.9 cm; Wt 74.8 kg
[~2021-03-01 10:03] MED LIST changes: -CHOL20007 PO; -CITA10TA8 PO; -CYCL-839 PO; -DICL50TA2 PO; -GABA100C PO
[2021-03-01] MEDS ORDERED: VERAPAMIL 2.5MG/ML INJ 2ML VIAL IV ONE (12:30)
[2021-03-01] MEDS ORDERED: ANGIOMAX 250 MG VIAL IV ONE (12:30)
[2021-03-01] MEDS ORDERED: fentaNYL CITRATE 100 MCG/2 ML VL ONE (12:31)
[2021-03-01] MEDS ORDERED: SODIUM CHL 0.9% 0 ML ONE (12:31)
[2021-03-01] MEDS ORDERED: MIDAZOLAM HCL 2MG/2ML 2ml VIAL (1mg/ml) ONE (12:31)
[2021-03-01] MEDS ORDERED: HEPARIN SODIUM (PORCINE) 5000 UNITS/ML 1ML VIAL ONE (12:36)
[2021-03-01] MEDS ORDERED: IODIXANOL 320MG/ML 100ML BTL IV ONE (15:19)
[2021-03-01] MEDS ORDERED: LIDOCAINE 2%HCL (LOCAL ANESTH.) INJ 20ML MDV ONE (15:19)
[2021-03-01] MEDS ORDERED: HYDROcodone-ACET 5/325MG TAB PO PRN (16:30)
[2021-03-01] MEDS ORDERED: ACETAMINOPHEN 500 MG TAB PO PRN (16:30)
[2021-03-01] MEDS ORDERED: ONDANSETRON HCL 4 MG/2 ML VIAL IV PRN (16:30)
== END 2021-03-01 17:45 | disposition home or self-care (01) ==
LOC: CATH 10:03
PROVIDERS: ATTEND Internal Medicine
DX: I25.10 Atherosclerotic heart disease of native coronary artery without angina pectoris (principal); F41.9 Anxiety disorder, unspecified; Z20.822 Contact with and (suspected) exposure to COVID-19; Z98.890 Other specified postprocedural states; Z87.891 Personal history of nicotine dependence; Z82.49 Family history of ischemic heart disease and other diseases of the circulatory system
CPT/HCPCS: 93458; C1769; C1887; C1894; J1644; J2250; J3010; Q9967; U0003; 99152

== ENCOUNTER → 2021-05-22 | Outpatient (CLI) | payer OTHER ==
[2021-05-22 10:49] LABS: Cholesterol 141 mg/dL (< 200); HDL Cholesterol 59 mg/dL (40-59); LDL Cholesterol 65 mg/dL (< 100); Triglycerides 84 mg/dL (< 150)
== END | disposition home or self-care (01) ==
LOC: LAB 09:57
PROVIDERS: ATTEND Internal Medicine
DX: I10 Essential (primary) hypertension (principal)
CPT/HCPCS: 36415; 80061

== ENCOUNTER → 2021-12-21 | Outpatient (CLI) | payer OTHER ==
[2021-12-21 10:44] LABS: Basophils # (auto) 0 10 ^3/uL (0-0.2); Eosinophils # (auto) 0.2 10 ^3/uL (0-0.8); Eosinophils % (auto) 3.9 % (0.0-7.0); Hematocrit 37.2 % (36.0-46.0); Hemoglobin 12.2 g/dL (12.2-16.2); Lymphocytes # (auto) 1.6 10 ^3/uL (0.4-5.4); Mean Corpuscular Hemoglobin 29.5 pg (28.0-32.0); Mean Corpuscular Hgb Conc. 32.7 g/dL (32.0-36.0); Monocytes # (auto) 0.4 10 ^3/uL (0-1.3); Monocytes % (auto) 7.5 % (0.0-12.0); Neutrophils # (auto) 2.6 10 ^3/uL (1.6-8.6); Neutrophils % (auto) 54.6 % (37.0-80.0); Red Blood Cells 4.13 10^6/uL (4.0-5.20); Red Cell Distribution Width 12.5 % (11.8-14.3); White Blood Cell 4.7 10^3/uL (4.4-10.8)
[2021-12-21 10:48] LABS: Urine Bacteria FEW /hpf (None Seen); Urine Blood TRACE /uL (Negative); Urine Mucus FEW (None Seen); Urine Specific Gravity 1.027 (1.001-1.035); Urine WBC 11 /hpf (0 - 5)
[2021-12-21 11:55] LABS: Potassium 4.1 mmol/L (3.5-5.1)
[2021-12-21 12:02] LABS: Albumin 3.7 g/dL (3.4-5.0); BUN/Creatinine Ratio 26.9; Bilirubin, Total 0.6 mg/dL (0.2-1.0); Calcium 9.1 mg/dL (8.5-10.1); Total Protein 7.6 g/dL (6.4-8.2)
== END | disposition home or self-care (01) ==
LOC: LAB 10:00
PROVIDERS: ATTEND Nurse Practitioner
DX: E78.5 Hyperlipidemia, unspecified (principal)
CPT/HCPCS: 36415; 80053; 80061; 81001; 82043; 83036; 84443; 85025

== ENCOUNTER 2022-03-06 11:05 | Emergency (ER) | payer OTHER, MEDICAID ==
[~2022-03-06] VITALS: Ht 154.9 cm; Wt 54.5 kg
[2022-03-06 12:55] LABS: Basophils # (auto) 0 10 ^3/uL (0-0.2); Basophils % (auto) 0.6 % (0.0-2.0); Eosinophils # (auto) 0.2 10 ^3/uL (0-0.8); Eosinophils % (auto) 1.8 % (0.0-7.0); Hematocrit 39.1 % (36.0-46.0); Hemoglobin 12.9 g/dL (12.2-16.2); Lymphocytes # (auto) 1.3 10 ^3/uL (0.4-5.4); Lymphocytes % (auto) 14.7 % (10.0-50.0); Mean Corpuscular Hemoglobin 30.2 pg (28.0-32.0); Mean Corpuscular Volume 91.5 fL (80.0-100.0); Monocytes # (auto) 0.4 10 ^3/uL (0-1.3); Monocytes % (auto) 4.9 % (0.0-12.0); Neutrophils # (auto) 6.9 10 ^3/uL (1.6-8.6); Nucleated Red Blood Cells % 0.1 %; Red Blood Cells 4.27 10^6/uL (4.0-5.20); Red Cell Distribution Width 12.9 % (11.8-14.3); White Blood Cell 8.8 10^3/uL (4.4-10.8)
[2022-03-06 13:09] LABS: Albumin 3.9 g/dL (3.4-5.0); Calcium 9.5 mg/dL (8.5-10.1); Potassium 4.2 mmol/L (3.5-5.1)
[2022-03-06 13:12] LABS: BUN/Creatinine Ratio 21.7; Bilirubin, Total 0.4 mg/dL (0.2-1.0); Total Protein 8.2 g/dL (6.4-8.2)
[2022-03-06] MEDS ORDERED: IOHEXOL 300 MG/ML 100ML BOTTLE IJ ONE (13:20)
[2022-03-06 15:06] LABS: Urine Bacteria NONE SEEN /hpf (None Seen); Urine Blood 1+ /uL (Negative); Urine Mucus FEW (None Seen); Urine WBC 1 /hpf (0 - 5)
[2022-03-06] MEDS ORDERED: TRAM-297 PO (15:22)
[2022-03-06 15:31] LABS: Urine Specific Gravity > 1.050 (1.001-1.035)
[2022-03-06 15:42] VITALS: BP 117/82
== END 2022-03-06 15:43 | disposition home or self-care (01) ==
LOC: ER 11:05
DX: S30.1XXA Contusion of abdominal wall, initial encounter (principal); S60.812A Abrasion of left wrist, initial encounter; S60.811A Abrasion of right wrist, initial encounter; S80.211A Abrasion, right knee, initial encounter; E11.9 Type 2 diabetes mellitus without complications; I10 Essential (primary) hypertension; F12.10 Cannabis abuse, uncomplicated; E78.5 Hyperlipidemia, unspecified; Z90.49 Acquired absence of other specified parts of digestive tract; Z98.51 Tubal ligation status; V43.52XA Car driver injured in collision with other type car in traffic accident, initial encounter; Y93.89 Activity, other specified; Y92.410 Unspecified street and highway as the place of occurrence of the external cause; Y99.8 Other external cause status
CPT/HCPCS: 36415; 74177; 80053; 81001; 85025; 99285; Q9967

== ENCOUNTER → 2022-07-31 | Day surgery (SDC) | payer OTHER ==
[2022-07-26 11:46] LABS: Basophils # (auto) 0.1 10 ^3/uL (0-0.2); Eosinophils # (auto) 0.2 10 ^3/uL (0-0.8); Eosinophils % (auto) 4.3 % (0.0-7.0); Hematocrit 43.1 % (36.0-46.0); Hemoglobin 14.7 g/dL (12.2-16.2); Lymphocytes # (auto) 1.5 10 ^3/uL (0.4-5.4); Lymphocytes % (auto) 30.1 % (10.0-50.0); Mean Corpuscular Hemoglobin 30.6 pg (28.0-32.0); Mean Corpuscular Hgb Conc. 34.2 g/dL (32.0-36.0); Mean Corpuscular Volume 89.7 fL (80.0-100.0); Monocytes # (auto) 0.3 10 ^3/uL (0-1.3); Monocytes % (auto) 6.2 % (0.0-12.0); Neutrophils % (auto) 58.4 % (37.0-80.0); Nucleated Red Blood Cells % 0.1 %; Red Blood Cells 4.81 10^6/uL (4.0-5.20); Red Cell Distribution Width 12.8 % (11.8-14.3); White Blood Cell 5.1 10^3/uL (4.4-10.8)
[2022-07-26 12:02] LABS: INR 0.97 (0.9-1.15); Partial Thromboplastin Time 27.1 sec (24.6-33.4)
[2022-07-26 13:12] LABS: Potassium 3.7 mmol/L (3.5-5.1)
[2022-07-26 13:16] LABS: Albumin 4.2 g/dL (3.4-5.0); BUN/Creatinine Ratio 24.4; Calcium 9.9 mg/dL (8.5-10.1)
[2022-07-26 13:20] LABS: Bilirubin, Total 0.4 mg/dL (0.2-1.0); Total Protein 8.8 g/dL (6.4-8.2)
[~2022-07-31] VITALS: Ht 154.9 cm; Wt 72.6 kg
[~2022-07-31] MED LIST changes: +ATOR40TA52 PO; +LATA0.0019 OP; +MIDAZOLAM HCL 2MG/2ML 2ml VIAL (1mg/ml) ONE; +fentaNYL CITRATE 100 MCG/2 ML VL ONE
[2022-07-31] MEDS: diphenhdrAMINE HCL 50 MG/1 ML VL ONE ×2 (11:11→11:14)
[2022-07-31] MEDS: MIDAZOLAM HCL 2MG/2ML 2ml VIAL (1mg/ml) ONE ×2 (11:11→11:16)
[2022-07-31] MEDS: fentaNYL CITRATE 100 MCG/2 ML VL ONE ×2 (11:11→11:16)
[2022-07-31 12:55] VITALS: BP 110/65
== END | disposition home or self-care (01) ==
LOC: GI 09:05
PROVIDERS: ATTEND Internal Medicine Gastroenterology
DX: Z12.11 Encounter for screening for malignant neoplasm of colon (principal); K63.5 Polyp of colon; K64.0 First degree hemorrhoids; Z20.822 Contact with and (suspected) exposure to COVID-19
CPT/HCPCS: 36415; 45385; 80053; 85025; 85610; 85730; 88305; J1200; J2250; J3010; J7030; U0003; 99152; 99153

== ENCOUNTER 2023-08-06 19:48 | Emergency (ER) | payer OTHER ==
[~2023-08-06] VITALS: Ht 154.9 cm; Wt 71.4 kg
[~2023-08-06 19:48] MED LIST changes: -LATA0.0019 OP; +LATA0.008 OP; -LISI-716 PO; +LISI10TA34 PO; -MIDAZOLAM HCL 2MG/2ML 2ml VIAL (1mg/ml) ONE; -fentaNYL CITRATE 100 MCG/2 ML VL ONE
[2023-08-06 20:39] LABS: Urine Bacteria FEW /hpf (None Seen); Urine Blood 2+ /uL (Negative); Urine Clarity HAZY (Clear); Urine Color Yellow (Yellow); Urine Mucus FEW (None Seen); Urine Protein, UAD 1+ (Negative); Urine Specific Gravity 1.027 (1.001-1.035); Urine Urobilinogen Normal (Negative); Urine WBC 103 /hpf (0 - 5)
[2023-08-07] MEDS ORDERED: ACET500T58 PO (00:21)
[2023-08-07] MEDS ORDERED: SULF800T23 PO (00:21)
[2023-08-07 00:30] VITALS: BP 122/79; PULSE 91; RESP 17; TEMP 97.8; O2SAT 99
[2023-08-07] MEDS: SODIUM CHLORIDE 0.9% 1,000 ML IV ONE (01:01)
[2023-08-07] MEDS: ACETAMINOPHEN 325 MG TAB PO ONE (01:01)
[2023-08-07] MEDS: cefTRIAXone 1GM/50ML D5W 50 ML IV ONE (01:19)
== END 2023-08-07 02:48 | disposition home or self-care (01) ==
LOC: ER 19:48
DX: N39.0 Urinary tract infection, site not specified (principal); I10 Essential (primary) hypertension; E11.9 Type 2 diabetes mellitus without complications; E78.5 Hyperlipidemia, unspecified; F15.90 Other stimulant use, unspecified, uncomplicated; Z98.890 Other specified postprocedural states; Z79.899 Other long term (current) drug therapy
CPT/HCPCS: 81001; 96365; 99284; J0696

== ENCOUNTER → 2023-09-09 | Outpatient (CLI) | payer OTHER ==
[~2023-09-09] MED LIST changes: +ACET500T58 PO; +SULF800T23 PO
[2023-09-09 10:43] LABS: Basophils # (auto) 0.1 10 ^3/uL (0-0.2); Basophils % (auto) 1.1 % (0.0-2.0); Eosinophils # (auto) 0.2 10 ^3/uL (0-0.8); Eosinophils % (auto) 3.9 % (0.0-7.0); Hematocrit 38.5 % (36.0-46.0); Hemoglobin 12.9 g/dL (12.2-16.2); Lymphocytes # (auto) 1.6 10 ^3/uL (0.4-5.4); Lymphocytes % (auto) 33.6 % (10.0-50.0); Mean Corpuscular Hemoglobin 30.6 pg (28.0-32.0); Mean Corpuscular Hgb Conc. 33.5 g/dL (32.0-36.0); Mean Corpuscular Volume 91.3 fL (80.0-100.0); Monocytes # (auto) 0.3 10 ^3/uL (0-1.3); Monocytes % (auto) 6.6 % (0.0-12.0); Neutrophils # (auto) 2.6 10 ^3/uL (1.6-8.6); Neutrophils % (auto) 54.8 % (37.0-80.0); Nucleated Red Blood Cells % 0.1 %; Red Blood Cells 4.22 10^6/uL (4.0-5.20); Red Cell Distribution Width 13.3 % (11.8-14.3); White Blood Cell 4.8 10^3/uL (4.4-10.8)
[2023-09-09 11:06] LABS: Alanine Aminotransferase 22 U/L (7-40); Albumin 4.8 g/dL (3.2-4.8); Alkaline Phosphatase 66 U/L (46-116); Anion Gap 8 (5-15); Aspartate Aminotransferase 20 U/L (13-40); BUN/Creatinine Ratio 20.8 (10.0-20.0); Bilirubin, Total 0.6 mg/dL (0.2-1.0); Blood Urea Nitrogen 20 mg/dL (9-23); Calcium 9.8 mg/dL (8.5-10.1); Carbon Dioxide 27 mmol/L (20-30); Chloride 106 mmol/L (98-107); Cholesterol 184 mg/dL (< 200); Glucose 112 mg/dL (74-106); HDL Cholesterol 56 mg/dL (40-59); LDL Cholesterol 115 mg/dL (< 100); Potassium 4.3 mmol/L (3.5-5.1); Sodium 141 mmol/L (136-145); Triglycerides 80 mg/dL (< 150)
[2023-09-09 11:07] LABS: Total Protein 8.1 g/dL (5.7-8.2)
[2023-09-09 11:35] LABS: Urine Bacteria FEW /hpf (None Seen); Urine Blood 1+ /uL (Negative); Urine Clarity Turbid (Clear); Urine Color Yellow (Yellow); Urine Mucus FEW (None Seen); Urine Protein, UAD TRACE (Negative); Urine Specific Gravity 1.022 (1.001-1.035); Urine Urobilinogen Normal (Negative); Urine WBC 11 /hpf (0 - 5)
== END | disposition home or self-care (01) ==
LOC: LAB 10:23
PROVIDERS: ATTEND Nurse Practitioner
DX: I10 Essential (primary) hypertension (principal); E78.5 Hyperlipidemia, unspecified; R73.9 Hyperglycemia, unspecified
CPT/HCPCS: 36415; 80053; 80061; 81001; 83036; 84443; 85025

== ENCOUNTER → 2024-05-11 | Outpatient (CLI) | payer OTHER ==
[2024-05-11 11:17] LABS: Urine Bacteria None Seen /hpf (None Seen)
[2024-05-11 11:29] LABS: Basophils # (auto) 0.1 10 ^3/uL (0-0.2); Basophils % (auto) 1.2 % (0.0-2.0); Eosinophils # (auto) 0.2 10 ^3/uL (0-0.8); Eosinophils % (auto) 4.6 % (0.0-7.0); Hematocrit 38.6 % (36.0-46.0); Lymphocytes # (auto) 1.7 10 ^3/uL (0.4-5.4); Lymphocytes % (auto) 32.4 % (10.0-50.0); Mean Corpuscular Hemoglobin 30.8 pg (28.0-32.0); Mean Corpuscular Hgb Conc. 33.7 g/dL (32.0-36.0); Mean Corpuscular Volume 91.5 fL (80.0-100.0); Monocytes # (auto) 0.5 10 ^3/uL (0-1.3); Monocytes % (auto) 9.4 % (0.0-12.0); Neutrophils # (auto) 2.7 10 ^3/uL (1.6-8.6); Neutrophils % (auto) 52.4 % (37.0-80.0); Platelet Count (auto) 301 10^3/uL (140-450); Red Blood Cells 4.22 10^6/uL (4.0-5.20); Red Cell Distribution Width 13.1 % (11.8-14.3); White Blood Cell 5.2 10^3/uL (4.4-10.8)
[2024-05-11 12:10] LABS: Urine Blood 1+ /uL (Negative); Urine Clarity Turbid (Clear); Urine Color Yellow (Yellow); Urine Hyaline Cast FEW /lpf (0 - 2); Urine Mucus FEW (None Seen); Urine Protein, UAD TRACE (Negative); Urine Specific Gravity 1.025 (1.001-1.035); Urine Urobilinogen Normal (Negative); Urine WBC 5 /hpf (0 - 5); Urine pH 5.5 (5.0-9.0)
[2024-05-11 12:38] LABS: Alanine Aminotransferase 30 U/L (7-40); Albumin 4.4 g/dL (3.2-4.8); Alkaline Phosphatase 76 U/L (46-116); Anion Gap 9 (5-15); Aspartate Aminotransferase 27 U/L (13-40); BUN/Creatinine Ratio 23.1 (10.0-20.0); Bilirubin, Total 0.6 mg/dL (0.2-1.0); Blood Urea Nitrogen 21 mg/dL (9-23); Calcium 10.3 mg/dL (8.7-10.4); Carbon Dioxide 27 mmol/L (20-31); Chloride 106 mmol/L (98-107); Cholesterol 131 mg/dL (< 200); HDL Cholesterol 55 mg/dL (40-59); LDL Cholesterol 61 mg/dL (< 100); Potassium 3.7 mmol/L (3.5-5.1); Sodium 142 mmol/L (136-145); Total Protein 7.5 g/dL (5.7-8.2); Triglycerides 78 mg/dL (< 150)
[2024-05-11 12:44] LABS: Glucose 114 mg/dL (74-106)
== END | disposition home or self-care (01) ==
LOC: LAB 11:05
PROVIDERS: ATTEND Nurse Practitioner
DX: E78.5 Hyperlipidemia, unspecified (principal); R73.9 Hyperglycemia, unspecified
CPT/HCPCS: 36415; 80053; 80061; 81001; 83036; 84443; 85025

== ENCOUNTER → 2024-05-11 | Outpatient (CLI) | payer OTHER ==
[2024-05-11 13:19] LABS: Creatinine, Urine 230.99 mg/dL (30.0-125.0)
== END | disposition home or self-care (01) ==
LOC: LAB 12:06
PROVIDERS: ATTEND Nurse Practitioner
DX: R73.02 Impaired glucose tolerance (oral) (principal)
CPT/HCPCS: 36415; 82043; 82570

== ENCOUNTER 2024-12-16 09:06 | Outpatient (CLI) | payer OTHER ==
[2024-12-16 10:04] LABS: Alanine Aminotransferase 22 U/L (7-40); Albumin 4.8 g/dL (3.2-4.8); Alkaline Phosphatase 78 U/L (46-116); Anion Gap 9 (5-15); BUN/Creatinine Ratio 14.6 (10.0-20.0); Blood Urea Nitrogen 13 mg/dL (9-23); Calcium 10.3 mg/dL (8.7-10.4); Carbon Dioxide 30 mmol/L (20-31); Chloride 105 mmol/L (98-107); Cholesterol 185 mg/dL (< 200); Potassium 4.4 mmol/L (3.5-5.1); Sodium 144 mmol/L (136-145); Total Protein 7.8 g/dL (5.7-8.2); Triglycerides 117 mg/dL (< 150)
[2024-12-16 10:05] LABS: Bilirubin, Total 0.4 mg/dL (0.2-1.0)
[2024-12-16 10:07] LABS: Glucose 120 mg/dL (74-106); HDL Cholesterol 60 mg/dL (40-59)
[2024-12-16 11:59] LABS: Urine Protein, UAD Negative (Negative)
== END 2024-12-16 17:00 | disposition home or self-care (01) ==
LOC: LAB 09:06
PROVIDERS: ATTEND Nurse Practitioner
DX: I10 Essential (primary) hypertension (principal); E78.5 Hyperlipidemia, unspecified; R73.9 Hyperglycemia, unspecified
CPT/HCPCS: 36415; 80053; 80061; 81001; 83036; 84443